=== PATIENT | male | born 1955 | race Hispanic/Latino ===

== ENCOUNTER → 2019-06-23 | Outpatient (CLI) | payer OTHER | END | disposition home or self-care (01) | LOC: OIH 13:15 | PROVIDERS: ATTEND Internal Medicine | DX: M19.042 Primary osteoarthritis, left hand (principal); M19.041 Primary osteoarthritis, right hand; M13.872 Other specified arthritis, left ankle and foot; M13.871 Other specified arthritis, right ankle and foot; M06.4 Inflammatory polyarthropathy | CPT/HCPCS: 73120; 73620 ==